=== PATIENT | male | born 1960 | race African-American/Black ===

== ENCOUNTER 2018-06-10 20:10 | Inpatient (IN) | payer SELFPAY ==
[~2018-06-10] VITALS: Ht 177.8 cm; Wt 60.4 kg
[2018-06-10] MEDS ORDERED: ONDANSETRON HCL 4MG/2ML INJ IV STA (23:44)
[2018-06-10] MEDS ORDERED: MORPHINE SULFATE 4 MG/ML CPJ (NOT FOR IM USE) IV STA (23:44)
[2018-06-10] MEDS ORDERED: SODIUM CHLORIDE 0.9% 1,000 ML IV ONE (23:44)
[2018-06-11 00:43] LABS: HEMATOCRIT. 48.2 % (42.0-52.0); HEMOGLOBIN. 16.3 g/dL (14.0-18.0); MEAN CORPUSCULAR HEMOGLOBIN 33.2 pg (28.0-32.0); MEAN PLATELET VOLUME 7.7 fl (7.4-10.4); PLATELET 213 x1000/uL (130-400); RED BLOOD CELL COUNT 4.92 mill/uL (4.7-6.1); RED CELL DISTRIBUTION WIDTH 12.8 % (11.6-14.6)
[2018-06-11 00:48] LABS: CHLORIDE 98 mEq/L (98-107)
[2018-06-11 01:12] LABS: ATYPICAL LYMPHOCYTES 5
[2018-06-11 01:13] LABS: PLATELET ESTIMATE NORMAL
[2018-06-11] MEDS ORDERED: SODIUM CHLORIDE 0.9% 1000ML BAG (SEPSIS BOLUS) IV ONE (01:45)
[2018-06-11] MEDS ORDERED: IOHEXOL-300 100 ML BOTTLE ONE (01:52)
[2018-06-11] MEDS ORDERED: LEVOFLOXACIN 750MG PREMIX 150 ML IV ONE (02:00)
[2018-06-11] MEDS ORDERED: VANCOMYCIN 1 G PREMIX 200 ML IV ONE (02:00)
[2018-06-11 02:35] LABS: CLARITY URINE CLEAR (CLEAR); COLOR URINE YELLOW (YELLOW); KETONES URINE TRACE (NEGATIVE); LEUKOCYTE ESTERASE URINE NEGATIVE (NEGATIVE); NITRITE URINE NEGATIVE (NEGATIVE); OCCULT BLOOD URINE NEGATIVE (NEGATIVE); PH URINE >=9.0 (4.5-8.0); PROTEIN URINE 2+ (NEGATIVE); SPECIFIC GRAVITY URINE 1.016 (1.005-1.030)
[2018-06-11] MEDS ORDERED: CLONIDINE 0.1MG TABLET PO NR (05:00)
[2018-06-11] MEDS ORDERED: MAGNESIUM/ALUMINUM HYDROXIDE/SIMETHICONE 30ML UDC PO PRN (05:15)
[2018-06-11] MEDS ORDERED: GUAIFENESIN 200MG/10ML SUGAR FREE UDC PO PRN (05:15)
[2018-06-11] MEDS ORDERED: LORAZEPAM 2MG/ML CPJ IV PRN (05:15)
[2018-06-11] MEDS ORDERED: NA PHOS,M-B/NA PHOS,DI-BA ENEMA 118ML PR PRN (05:15)
[2018-06-11] MEDS ORDERED: IPRATROPIUM/ALBUTEROL 0.5-3(2.5)MG/3ML NEB INH PRN (05:15)
[2018-06-11] MEDS ORDERED: DIPHENHYDRAMINE 50MG/ML VIAL IV PRN (05:15)
[2018-06-11] MEDS ORDERED: DOCUSATE SODIUM 100MG CAPSULE PO PRN (05:15)
[2018-06-11] MEDS ORDERED: ACETAMINOPHEN 325MG TABLET PO PRN (05:15)
[2018-06-11] MEDS ORDERED: CLONIDINE 0.3MG TABLET PO NR (05:30)
[2018-06-11] MEDS: AMLODIPINE 10MG TABLET PO SCH (05:44)
[2018-06-11] MEDS: MORPHINE SULFATE 4 MG/ML CPJ (NOT FOR IM USE) IV PRN (05:58)
[2018-06-11 06:26] LABS: CHLORIDE 101 mEq/L (98-107)
[2018-06-11 08:00] VITALS: BP 129/92
[2018-06-11] MEDS: LISINOPRIL 20MG TABLET PO SCH (09:00)
[2018-06-11] MEDS: ENOXAPARIN 40MG/0.4ML SYR SUBCUT SCH (09:00)
[2018-06-11] MEDS: METOPROLOL TARTRATE 25MG TABLET PO SCH ×2 (09:00→21:20)
[2018-06-11 10:17] VITALS: BP 129/92
[2018-06-11 12:00] VITALS: BP 126/87
[2018-06-11 16:00] VITALS: BP 137/90
[2018-06-11] MEDS ORDERED: BENZONATATE 100MG CAPSULE PO PRN (17:15)
[2018-06-11] MEDS ORDERED: NICOTINE 21MG PATCH TD NR (17:15)
[2018-06-11 20:00] VITALS: BP 140/92
[2018-06-11] MEDS: FLUTICASONE PROPIONATE 50MCG/SPRAY BOTTLE BOTHNSTRLS SCH (21:19)
[2018-06-11 22:49] LABS: CANNABINOID URINE SCREEN NEGATIVE (NEGATIVE); METHADONE URINE SCREEN NEGATIVE (NEGATIVE); OPIATES URINE SCREEN PRESUMTIVE POSITIVE (NEGATIVE); PHENCYCLIDINE URINE SCREEN NEGATIVE (NEGATIVE)
[2018-06-11 22:50] LABS: *AMPHETAMINES SCREEN URINE NEGATIVE (NEGATIVE); *BARBITURATES SCREEN URINE NEGATIVE (NEGATIVE); *BENZODIAZEPINES SCREEN URINE NEGATIVE (NEGATIVE); *COCAINE SCREEN URINE NEGATIVE (NEGATIVE)
[2018-06-12] VITALS (7 sets, daily range): BP systolic 104–186; BP diastolic 72–117
[2018-06-12] MEDS: LEVOFLOXACIN 500MG PREMIX 100 ML IV SCH (02:58)
[2018-06-12] MEDS: CLONIDINE 0.1MG TABLET PO PRN ×2 (02:59→09:12)
[2018-06-12] MEDS: MORPHINE SULFATE 4 MG/ML CPJ (NOT FOR IM USE) IV PRN ×2 (03:09→12:08)
[2018-06-12] MEDS: ONDANSETRON HCL 4MG/2ML INJ IV PRN ×2 (04:59→12:08)
[2018-06-12] MEDS: AMLODIPINE 10MG TABLET PO SCH (05:19)
[2018-06-12] MEDS: HYDROCODONE/ACETAMINOPHEN 5/325MG TABLET PO PRN ×2 (06:16→20:43)
[2018-06-12 07:00] LABS: HEMATOCRIT. 47.3 % (42.0-52.0); HEMOGLOBIN. 16.1 g/dL (14.0-18.0); MEAN CORPUSCULAR HEMOGLOBIN 33.4 pg (28.0-32.0); MEAN CORPUSCULAR VOLUME 98.3 fL (80.0-94.0); MEAN PLATELET VOLUME 7.8 fl (7.4-10.4); PLATELET 217 x1000/uL (130-400); RED BLOOD CELL COUNT 4.82 mill/uL (4.7-6.1); RED CELL DISTRIBUTION WIDTH 12.7 % (11.6-14.6)
[2018-06-12 07:15] LABS: CHLORIDE 103 mEq/L (98-107)
[2018-06-12 07:28] LABS: LDL CHOLESTEROL 106 mg/dL (5-100)
[2018-06-12 07:29] LABS: HDL CHOLESTEROL 72 mg/dL (40-59); T4 FREE 0.85 ng/dL (0.76-1.46)
[2018-06-12] MEDS: LISINOPRIL 20MG TABLET PO SCH (08:34)
[2018-06-12] MEDS: METOPROLOL TARTRATE 25MG TABLET PO SCH ×2 (08:34→20:43)
[2018-06-12] MEDS: NICOTINE 21MG PATCH TD SCH ×2 (08:34→08:41)
[2018-06-12] MEDS: ENOXAPARIN 40MG/0.4ML SYR SUBCUT SCH (08:35)
[2018-06-12] MEDS: FLUTICASONE PROPIONATE 50MCG/SPRAY BOTTLE BOTHNSTRLS SCH ×2 (08:36→20:43)
[2018-06-12] MEDS ORDERED: CLONIDINE 0.1MG TABLET PO SCH (12:00)
[2018-06-12] MEDS: HYDRALAZINE HCL 50MG TABLET PO SCH ×2 (14:00→20:43)
[2018-06-12 14:27] LABS: PLATELET ESTIMATE NORMAL
[2018-06-12] MEDS ORDERED: CLONIDINE 0.2MG TABLET PO PRN (17:15)
[2018-06-12] MEDS ORDERED: CLONIDINE 0.3MG TABLET PO PRN (17:15)
[2018-06-13] VITALS: BP 136/91
[2018-06-13 04:00] VITALS: BP 146/90
[2018-06-13] MEDS: HYDRALAZINE HCL 50MG TABLET PO SCH ×2 (05:34→15:29)
[2018-06-13] MEDS: LEVOFLOXACIN 500MG PREMIX 100 ML IV SCH (05:35)
[2018-06-13 08:00] VITALS: BP 147/104
[2018-06-13] MEDS: FLUTICASONE PROPIONATE 50MCG/SPRAY BOTTLE BOTHNSTRLS SCH (08:55)
[2018-06-13] MEDS: LISINOPRIL 20MG TABLET PO SCH (08:55)
[2018-06-13] MEDS: METOPROLOL TARTRATE 25MG TABLET PO SCH (08:56)
[2018-06-13] MEDS: AMLODIPINE 10MG TABLET PO SCH (08:56)
[2018-06-13] MEDS: NICOTINE 21MG PATCH TD SCH (08:57)
[2018-06-13] MEDS: ENOXAPARIN 40MG/0.4ML SYR SUBCUT SCH (08:57)
[2018-06-13] MEDS: MORPHINE SULFATE 4 MG/ML CPJ (NOT FOR IM USE) IV PRN (09:48)
[2018-06-13 12:00] VITALS: BP 140/85
[2018-06-13] MEDS: IPRATROPIUM/ALBUTEROL 0.5-3(2.5)MG/3ML NEB HHN SCH ×2 (13:12→17:28)
[2018-06-13] MEDS ORDERED: ACETYLCYSTEINE 100MG/ML 10% VIAL 4ML INH SCH (14:00)
[2018-06-13 16:00] VITALS: BP 145/93
[2018-06-13 18:39] VITALS: BP 145/93
[2018-06-13] MEDS ORDERED: GUAIFENESIN 600MG ER TABLET PO SCH (21:00)
[2018-06-13] MEDS ORDERED: LEVOFLOXACIN 750MG PREMIX 150 ML IV SCH (21:00)
[2018-06-14] MEDS ORDERED: LEVOFLOXACIN 250MG TABLET PO SCH (21:00)
== END 2018-06-13 19:20 | disposition home or self-care (01) | DRG 720 ==
LOC: ER 20:10 → 5WST 06-11 02:03 → EDBEDREQ 06-11 02:07 → ENRESERV 06-11 07:33
PROVIDERS: ADMIT Internal Medicine; ATTEND Internal Medicine
DX: A41.9 Sepsis, unspecified organism (principal); J96.00 Acute respiratory failure, unspecified whether with hypoxia or hypercapnia; J18.9 Pneumonia, unspecified organism; E11.9 Type 2 diabetes mellitus without complications; F17.210 Nicotine dependence, cigarettes, uncomplicated; H54.61 Unqualified visual loss, right eye, normal vision left eye; J43.9 Emphysema, unspecified; K29.70 Gastritis, unspecified, without bleeding; I10 Essential (primary) hypertension; M47.816 Spondylosis without myelopathy or radiculopathy, lumbar region; M48.061 Spinal stenosis, lumbar region without neurogenic claudication; Q63.1 Lobulated, fused and horseshoe kidney; Z82.3 Family history of stroke; Z83.3 Family history of diabetes mellitus; Z91.14 Patient's other noncompliance with medication regimen; Z88.0 Allergy status to penicillin; Z79.84 Long term (current) use of oral hypoglycemic drugs
CPT/HCPCS: 36415; 71045; 71250; 74177; 80048; 80061; 80305; 82962; 83036; 83605; 84439; 84443; 84484; 93005; 94640; 96365; 96367; 96375; 99291; J1650; J1956; J2270; J2405; J3370; J7030; J7040; J7050; J7608; J7620; Q9967

== ENCOUNTER 2018-08-14 23:23 | Inpatient (IN) | payer OTHER, MEDICAID ==
[~2018-08-14] VITALS: Ht 177.8 cm; Wt 66.7 kg
[2018-08-15 01:04] LABS: BASOPHILS % 0.4 % (0.0-2.0); EOSINOPHILS % 0.1 % (0.0-5.0); HEMATOCRIT. 38.4 % (42.0-52.0); HEMOGLOBIN. 12.9 g/dL (14.0-18.0); LYMPHOCYTES % 7.2 % (20.0-50.0); MEAN CORPUSCULAR HEMOGLOBIN 31.7 pg (28.0-32.0); MEAN CORPUSCULAR VOLUME 94.4 fL (80.0-94.0); MONOCYTES % 3.1 % (2.0-8.0); NEUTROPHILS % 89.2 % (40.0-76.0); PLATELET 519 x1000/uL (130-400); RED BLOOD CELL COUNT 4.07 mill/uL (4.7-6.1); RED CELL DISTRIBUTION WIDTH 13.3 % (11.6-14.6)
[2018-08-15 01:13] LABS: CHLORIDE 102 mEq/L (98-107)
[2018-08-15 01:16] LABS: INR 1.1; PARTIAL THROMBOPLASTIN TIME 34.3 sec (23.4-31.0); PROTHROMBIN TIME 11.3 sec (9.1-11.1)
[2018-08-15] MEDS ORDERED: ONDANSETRON HCL 4MG/2ML INJ IV ONE (01:45)
[2018-08-15] MEDS ORDERED: KETOROLAC 30MG/ML VIAL IV ONE (02:00)
[2018-08-15] MEDS ORDERED: ASPIRIN 325MG EC TABLET PO ONE (02:15)
[2018-08-15 02:31] LABS: CLARITY URINE CLOUDY (CLEAR); COLOR URINE YELLOW (YELLOW); KETONES URINE NEGATIVE (NEGATIVE); LEUKOCYTE ESTERASE URINE NEGATIVE (NEGATIVE); NITRITE URINE NEGATIVE (NEGATIVE); OCCULT BLOOD URINE NEGATIVE (NEGATIVE); PH URINE >=9.0 (4.5-8.0); PROTEIN URINE TRACE (NEGATIVE); UROBILINOGEN URINE 0.2 E.U./dL (0.2-1.0)
[2018-08-15] MEDS ORDERED: METOCLOPRAMIDE HCL 10MG/2ML VIAL IV ONE (03:15)
[2018-08-15] MEDS ORDERED: ONDANSETRON HCL 4MG/2ML INJ IV PRN (04:30)
[2018-08-15] MEDS ORDERED: CLONIDINE 0.1MG TABLET PO PRN (04:30)
[2018-08-15] MEDS ORDERED: MAGNESIUM/ALUMINUM HYDROXIDE/SIMETHICONE 30ML UDC PO PRN (04:30)
[2018-08-15] MEDS ORDERED: ACETAMINOPHEN 325MG TABLET PO PRN (04:30)
[2018-08-15] MEDS: SODIUM CHLORIDE 0.45% 1,000 ML IV SCH ×2 (05:30→21:40)
[2018-08-15] MEDS ORDERED: AMLO10TA4 PO (11:28)
[2018-08-15] MEDS ORDERED: RIVA20TA PO (11:28)
[2018-08-15] MEDS ORDERED: HYDR-4135 PO (11:28)
[2018-08-15] MEDS ORDERED: ALBU90AE IH (11:28)
[2018-08-15] MEDS ORDERED: ASPI-1159 PO (11:28)
[2018-08-15] MEDS: AMLODIPINE 10MG TABLET PO SCH (11:54)
[2018-08-15 12:00] VITALS: BP 137/86
[2018-08-15] MEDS ORDERED: PANTOPRAZOLE SODIUM 40 MG/VIAL IV SCH (14:00)
[2018-08-15 14:03] VITALS: BP 143/74
[2018-08-15] MEDS ORDERED: INFLUENZA VIRUS VACCINE(AFLURIA) 0.5ML SYR IM ONE (15:15)
[2018-08-15] MEDS ORDERED: PNEUMOCOCCAL 23-VAL P-SAC VAC 0.5 ML IM ONE (15:15)
[2018-08-15 16:00] VITALS: BP 130/87
[2018-08-15] MEDS ORDERED: RIVAROXABAN 10 MG TABLET PO SCH (17:00)
[2018-08-15] MEDS: METOCLOPRAMIDE HCL 10MG/2ML VIAL IV SCH ×2 (17:49→23:56)
[2018-08-15 20:53] VITALS: BP 126/87
[2018-08-15] MEDS: PANTOPRAZOLE SODIUM 40 MG/VIAL IV SCH (21:40)
[2018-08-15 23:55] VITALS: BP 165/99
[2018-08-16 04:00] VITALS: BP 167/114
[2018-08-16] MEDS ORDERED: HYDRALAZINE 20MG/ML VIAL IV PRN (04:45)
[2018-08-16] MEDS: METOCLOPRAMIDE HCL 10MG/2ML VIAL IV SCH ×4 (05:23→23:38)
[2018-08-16] MEDS: KETOROLAC 15MG/ML VIAL IV PRN ×2 (05:25→23:38)
[2018-08-16 07:24] LABS: BASOPHILS % 0.8 % (0.0-2.0); CHLORIDE 102 mEq/L (98-107); HEMATOCRIT. 41.5 % (42.0-52.0); HEMOGLOBIN. 13.9 g/dL (14.0-18.0); LYMPHOCYTES % 8.4 % (20.0-50.0); MEAN CORPUSCULAR HEMOGLOBIN 31.6 pg (28.0-32.0); MEAN CORPUSCULAR VOLUME 94.3 fL (80.0-94.0); MEAN PLATELET VOLUME 6.9 fl (7.4-10.4); MONOCYTES % 4.8 % (2.0-8.0); PLATELET 539 x1000/uL (130-400); RED CELL DISTRIBUTION WIDTH 13.2 % (11.6-14.6)
[2018-08-16 08:00] VITALS: BP 126/81
[2018-08-16] MEDS ORDERED: INFLUENZA VIRUS VACCINE(AFLURIA) 0.5ML SYR IM ONE (09:00)
[2018-08-16] MEDS ORDERED: PNEUMOCOCCAL 23-VAL P-SAC VAC 0.5 ML IM ONE (09:00)
[2018-08-16] MEDS: PANTOPRAZOLE SODIUM 40 MG/VIAL IV SCH ×2 (09:43→21:31)
[2018-08-16] MEDS: AMLODIPINE 10MG TABLET PO SCH (09:44)
[2018-08-16] MEDS: HYDROMORPHONE HCL/PF 2MG/ML CPJ IV PRN ×2 (09:45→17:53)
[2018-08-16 12:00] VITALS: BP 119/90
[2018-08-16] MEDS: SODIUM CHLORIDE 0.45% 1,000 ML IV SCH (14:45)
[2018-08-16 16:00] VITALS: BP 132/76
[2018-08-16] MEDS: RIVAROXABAN 20 MG TABLET PO SCH (17:52)
[2018-08-16 20:00] VITALS: BP 125/83
[2018-08-16 23:30] VITALS: BP 137/87
[2018-08-17] VITALS (7 sets, daily range): BP systolic 113–180; BP diastolic 76–99
[2018-08-17] MEDS: HYDROMORPHONE HCL/PF 2MG/ML CPJ IV PRN ×4 (02:28→22:21)
[2018-08-17] MEDS: METOCLOPRAMIDE HCL 10MG/2ML VIAL IV SCH ×3 (05:02→18:13)
[2018-08-17] MEDS: SODIUM CHLORIDE 0.45% 1,000 ML IV SCH ×2 (05:28→23:46)
[2018-08-17] MEDS: AMLODIPINE 10MG TABLET PO SCH (08:36)
[2018-08-17] MEDS: PANTOPRAZOLE SODIUM 40 MG/VIAL IV SCH ×2 (08:36→22:20)
[2018-08-17] MEDS ORDERED: SIMETHICONE 40 MG/0.6 ML 30ML ONE (12:48)
[2018-08-17] MEDS ORDERED: SODIUM CHLORIDE 0.9% 10ML VIAL ONE (13:51)
[2018-08-17] MEDS ORDERED: MIDAZOLAM HCL 5 MG/5 ML VIAL IV PRN (15:38)
[2018-08-17] MEDS ORDERED: FENTANYL CITRATE/PF 50MCG/ML 2ML VIAL IV PRN (15:39)
[2018-08-17] MEDS ORDERED: FENTANYL CITRATE/PF 50MCG/ML 2ML VIAL ONE (15:41)
[2018-08-17] MEDS ORDERED: MIDAZOLAM HCL 5 MG/5 ML VIAL ONE (15:41)
[2018-08-17] MEDS: RIVAROXABAN 20 MG TABLET PO SCH (18:13)
[2018-08-18 00:02] VITALS: BP 125/80
[2018-08-18] MEDS: METOCLOPRAMIDE HCL 10MG/2ML VIAL IV SCH ×3 (00:06→11:22)
[2018-08-18] MEDS: HYDROMORPHONE HCL/PF 2MG/ML CPJ IV PRN ×3 (03:45→12:19)
[2018-08-18 04:02] VITALS: BP 126/88
[2018-08-18 08:00] VITALS: BP 164/99
[2018-08-18] MEDS: PANTOPRAZOLE SODIUM 40 MG/VIAL IV SCH (08:06)
[2018-08-18] MEDS: AMLODIPINE 10MG TABLET PO SCH (08:07)
[2018-08-18 12:00] VITALS: BP 118/85
[2018-08-18 15:10] VITALS: BP 118/85
== END 2018-08-18 15:48 | disposition home or self-care (01) | DRG 241 ==
LOC: ER 23:23 → 5WST 08-15 02:04 → ENRESERV 08-15 10:06 → 6WST 08-17 16:52
PROVIDERS: ADMIT Hospitalist; ATTEND Hospitalist
PROC: 0DB68ZX Excision of Stomach, Via Natural or Artificial Opening Endoscopic, Diagnostic (ICD-10-PCS; principal; 2018-08-17 14:30)
DX: K29.60 Other gastritis without bleeding (principal); K31.84 Gastroparesis; E11.43 Type 2 diabetes mellitus with diabetic autonomic (poly)neuropathy; E44.1 Mild protein-calorie malnutrition; I10 Essential (primary) hypertension; D64.9 Anemia, unspecified; N40.0 Benign prostatic hyperplasia without lower urinary tract symptoms; J44.9 Chronic obstructive pulmonary disease, unspecified; K44.9 Diaphragmatic hernia without obstruction or gangrene; Z88.0 Allergy status to penicillin; Z86.711 Personal history of pulmonary embolism; Z79.82 Long term (current) use of aspirin; Z79.01 Long term (current) use of anticoagulants; Q63.1 Lobulated, fused and horseshoe kidney
CPT/HCPCS: 36415; 74176; 82962; 83036; 83605; 84484; 88305; 88312; 88313; 90686; 90732; 93005; 96365; 97161; 99285; A4216; C9113; J0360; J1170; J1885; J2250; J2405; J2765; J3010

== ENCOUNTER 2018-08-19 22:33 | Emergency (ER) | payer MEDICAID ==
[~2018-08-19] VITALS: Ht 177.8 cm; Wt 68.0 kg
[~2018-08-19 22:33] MED LIST: ALBU90AE IH; AMLO10TA4 PO; ASPI-1159 PO; HYDR-4135 PO; RIVA20TA PO
[2018-08-20 06:15] LABS: BASOPHILS % 0.4 % (0.0-2.0); EOSINOPHILS % 0.1 % (0.0-5.0); HEMOGLOBIN. 14.4 g/dL (14.0-18.0); LYMPHOCYTES % 19.4 % (20.0-50.0); MEAN CORPUSCULAR HEMOGLOBIN 31.2 pg (28.0-32.0); MEAN CORPUSCULAR VOLUME 92.9 fL (80.0-94.0); MEAN PLATELET VOLUME 6.7 fl (7.4-10.4); MONOCYTES % 8.1 % (2.0-8.0); PLATELET 459 x1000/uL (130-400); RED BLOOD CELL COUNT 4.63 mill/uL (4.7-6.1); RED CELL DISTRIBUTION WIDTH 13.4 % (11.6-14.6)
[2018-08-20 06:20] LABS: INR 1.2
[2018-08-20 06:22] LABS: CHLORIDE 100 mEq/L (98-107)
[2018-08-20] MEDS ORDERED: ONDANSETRON HCL 4MG/2ML INJ IV STA (06:35)
[2018-08-20] MEDS ORDERED: SODIUM CHLORIDE 0.9% 1,000 ML IV ONE (06:35)
[2018-08-20] MEDS ORDERED: MORPHINE SULFATE 10 MG/ML CPJ IV STA (06:35)
[2018-08-20] MEDS ORDERED: MAGNESIUM/ALUMINUM HYDROXIDE/SIMETHICONE 30ML UDC PO STA (06:35)
[2018-08-20] MEDS ORDERED: MORPHINE SULFATE 10 MG/ML CPJ IV ONE (07:15)
[2018-08-20 07:21] LABS: CLARITY URINE CLOUDY (CLEAR); COLOR URINE YELLOW (YELLOW); KETONES URINE NEGATIVE (NEGATIVE); LEUKOCYTE ESTERASE URINE NEGATIVE (NEGATIVE); NITRITE URINE NEGATIVE (NEGATIVE); OCCULT BLOOD URINE NEGATIVE (NEGATIVE); PROTEIN URINE NEGATIVE (NEGATIVE); SPECIFIC GRAVITY URINE 1.012 (1.005-1.030); UROBILINOGEN URINE 0.2 E.U./dL (0.2-1.0)
[2018-08-20] MEDS ORDERED: KETOROLAC 30MG/ML VIAL IV ONE (08:45)
[2018-08-20 10:10] VITALS: BP 127/91
== END 2018-08-20 10:16 | disposition home or self-care (01) ==
LOC: ER 22:33
DX: R10.13 Epigastric pain (principal); R03.0 Elevated blood-pressure reading, without diagnosis of hypertension; Z87.19 Personal history of other diseases of the digestive system
CPT/HCPCS: 36415; 80053; 81003; 83690; 85025; 85610; 96361; 96374; 96375; 99283; J1885; J2270; J2405

== ENCOUNTER 2018-08-21 00:41 | Emergency (ER) | payer MEDICAID ==
[~2018-08-21] VITALS: Ht 177.8 cm; Wt 68.0 kg
[2018-08-21] MEDS ORDERED: ONDANSETRON HCL 4MG/2ML INJ IV STA (04:39)
[2018-08-21] MEDS ORDERED: FAMOTIDINE 20MG/2ML VIAL IV STA (04:39)
[2018-08-21 05:20] LABS: CHLORIDE 99 mEq/L (98-107)
[2018-08-21 05:22] LABS: BASOPHILS % 0.5 % (0.0-2.0); EOSINOPHILS % 0.2 % (0.0-5.0); HEMATOCRIT. 42.7 % (42.0-52.0); HEMOGLOBIN. 14.3 g/dL (14.0-18.0); LYMPHOCYTES % 17.8 % (20.0-50.0); MEAN CORPUSCULAR HEMOGLOBIN 31.4 pg (28.0-32.0); MEAN CORPUSCULAR VOLUME 93.5 fL (80.0-94.0); MEAN PLATELET VOLUME 6.8 fl (7.4-10.4); MONOCYTES % 8.2 % (2.0-8.0); NEUTROPHILS % 73.3 % (40.0-76.0); PLATELET 417 x1000/uL (130-400); RED BLOOD CELL COUNT 4.57 mill/uL (4.7-6.1); RED CELL DISTRIBUTION WIDTH 13.5 % (11.6-14.6)
[2018-08-21 05:26] LABS: INR 1.1; PROTHROMBIN TIME 11.1 sec (9.1-11.1)
[2018-08-21] MEDS ORDERED: MORPHINE SULFATE 2 MG/ML CPJ (NOT FOR IM USE) IV ONE (06:30)
[2018-08-21] MEDS ORDERED: SODIUM CHLORIDE 0.9% 1,000 ML IV ONE (06:30)
[2018-08-21] MEDS ORDERED: MORPHINE SULFATE 10 MG/ML CPJ IV SCH (06:36)
[2018-08-21 08:52] LABS: CLARITY URINE CLEAR (CLEAR); COLOR URINE YELLOW (YELLOW); KETONES URINE NEGATIVE (NEGATIVE); LEUKOCYTE ESTERASE URINE NEGATIVE (NEGATIVE); NITRITE URINE NEGATIVE (NEGATIVE); OCCULT BLOOD URINE NEGATIVE (NEGATIVE); PROTEIN URINE NEGATIVE (NEGATIVE); SPECIFIC GRAVITY URINE 1.006 (1.005-1.030); UROBILINOGEN URINE 0.2 E.U./dL (0.2-1.0)
[2018-08-21] MEDS ORDERED: POTASSIUM CHLORIDE 20MEQ TABLET SR PO ONE (09:00)
[2018-08-21] MEDS ORDERED: VISCOUS LIDOCAINE 2% 15 ML UDC MM ONE (09:15)
[2018-08-21] MEDS ORDERED: MAGNESIUM/ALUMINUM HYDROXIDE/SIMETHICONE 30ML UDC PO ONE (09:15)
[2018-08-21 09:30] VITALS: BP 110/67
== END 2018-08-21 09:45 | disposition home or self-care (01) ==
LOC: ER 00:41
DX: K29.70 Gastritis, unspecified, without bleeding (principal); I10 Essential (primary) hypertension; F17.200 Nicotine dependence, unspecified, uncomplicated; Z98.890 Other specified postprocedural states; Z79.82 Long term (current) use of aspirin; Z79.899 Other long term (current) drug therapy; Z88.0 Allergy status to penicillin
CPT/HCPCS: 36415; 71045; 74176; 80053; 81003; 83690; 85025; 85610; 96361; 96374; 96375; 99284; J2270; J2405; J3490; J7030

== ENCOUNTER 2018-10-04 17:43 | Emergency (ER) | payer MEDICAID ==
[~2018-10-04] VITALS: Ht 177.8 cm; Wt 58.0 kg
[2018-10-04 22:58] LABS: CLARITY URINE CLEAR (CLEAR); COLOR URINE YELLOW (YELLOW); KETONES URINE TRACE (NEGATIVE); LEUKOCYTE ESTERASE URINE NEGATIVE (NEGATIVE); NITRITE URINE NEGATIVE (NEGATIVE); OCCULT BLOOD URINE NEGATIVE (NEGATIVE); PH URINE 7.5 (4.5-8.0); PROTEIN URINE 3+ (NEGATIVE); SPECIFIC GRAVITY URINE 1.021 (1.005-1.030); UROBILINOGEN URINE 0.2 E.U./dL (0.2-1.0)
[2018-10-04] MEDS ORDERED: SODIUM CHLORIDE 0.9% 1,000 ML IV ONE (22:58)
[2018-10-04] MEDS ORDERED: MAGNESIUM/ALUMINUM HYDROXIDE/SIMETHICONE 30ML UDC PO STA (22:58)
[2018-10-04] MEDS ORDERED: ONDANSETRON HCL 4MG/2ML INJ IV STA (22:58)
[2018-10-04] MEDS ORDERED: MORPHINE SULFATE 10 MG/ML CPJ IV ONE (23:00)
[2018-10-04 23:44] LABS: BASOPHILS % 0.3 % (0.0-2.0); HEMATOCRIT. 44.6 % (42.0-52.0); LYMPHOCYTES % 13.7 % (20.0-50.0); MEAN CORPUSCULAR HEMOGLOBIN 31.7 pg (28.0-32.0); MEAN CORPUSCULAR VOLUME 94.5 fL (80.0-94.0); MEAN PLATELET VOLUME 7.2 fl (7.4-10.4); MONOCYTES % 4.5 % (2.0-8.0); NEUTROPHILS % 81.5 % (40.0-76.0); PLATELET 220 x1000/uL (130-400); RED BLOOD CELL COUNT 4.72 mill/uL (4.7-6.1); RED CELL DISTRIBUTION WIDTH 15.9 % (11.6-14.6)
[2018-10-04 23:48] LABS: CHLORIDE 104 mEq/L (98-107)
[2018-10-04 23:49] LABS: INR 1.2; PROTHROMBIN TIME 11.6 sec (9.1-11.1)
[2018-10-05 04:16] VITALS: BP 130/80
== END 2018-10-05 04:21 | disposition home or self-care (01) ==
LOC: ER 17:43
DX: K29.70 Gastritis, unspecified, without bleeding (principal); E11.9 Type 2 diabetes mellitus without complications; I10 Essential (primary) hypertension; F17.200 Nicotine dependence, unspecified, uncomplicated; Z79.82 Long term (current) use of aspirin; Z79.899 Other long term (current) drug therapy; Z88.0 Allergy status to penicillin
CPT/HCPCS: 36415; 80053; 81003; 83690; 85025; 85610; 96361; 96374; 96375; 99283; J2270; J2405; J7030; J7040; Z7610

== ENCOUNTER 2018-11-24 20:28 | Emergency (ER) | payer MEDICAID ==
[~2018-11-24] VITALS: Ht 182.9 cm; Wt 76.6 kg
[2018-11-24] MEDS ORDERED: ONDANSETRON HCL 4MG/2ML INJ IV STA (23:33)
[2018-11-24] MEDS ORDERED: SODIUM CHLORIDE 0.9% 1,000 ML IV ONE (23:33)
[2018-11-24] MEDS ORDERED: KETOROLAC 30MG/ML VIAL IV STA (23:33)
[2018-11-24 23:54] LABS: BASOPHILS % 0.1 % (0.0-2.0); HEMATOCRIT. 50.6 % (42.0-52.0); HEMOGLOBIN. 17.2 g/dL (14.0-18.0); LYMPHOCYTES % 9.7 % (20.0-50.0); MEAN CORPUSCULAR HEMOGLOBIN 32.6 pg (28.0-32.0); MEAN CORPUSCULAR VOLUME 96.1 fL (80.0-94.0); MEAN PLATELET VOLUME 7.4 fl (7.4-10.4); MONOCYTES % 2.6 % (2.0-8.0); NEUTROPHILS % 87.6 % (40.0-76.0); PLATELET 186 x1000/uL (130-400); RED BLOOD CELL COUNT 5.27 mill/uL (4.7-6.1)
[2018-11-24 23:59] LABS: CHLORIDE 103 mEq/L (98-107)
[2018-11-25] LABS: INR 1.1; PROTHROMBIN TIME 10.7 sec (9.1-11.1)
[2018-11-25 01:45] LABS: CLARITY URINE CLEAR (CLEAR); COLOR URINE YELLOW (YELLOW); KETONES URINE 1+ (NEGATIVE); LEUKOCYTE ESTERASE URINE NEGATIVE (NEGATIVE); NITRITE URINE NEGATIVE (NEGATIVE); OCCULT BLOOD URINE 1+ (NEGATIVE); PROTEIN URINE 3+ (NEGATIVE); SPECIFIC GRAVITY URINE 1.014 (1.005-1.030); UROBILINOGEN URINE 0.2 E.U./dL (0.2-1.0)
[2018-11-25 01:51] LABS: *AMPHETAMINES SCREEN URINE NEGATIVE (NEGATIVE); *BARBITURATES SCREEN URINE NEGATIVE (NEGATIVE); *BENZODIAZEPINES SCREEN URINE NEGATIVE (NEGATIVE); *COCAINE SCREEN URINE NEGATIVE (NEGATIVE); CANNABINOID URINE SCREEN NEGATIVE (NEGATIVE); METHADONE URINE SCREEN NEGATIVE (NEGATIVE); OPIATES URINE SCREEN NEGATIVE (NEGATIVE); PHENCYCLIDINE URINE SCREEN NEGATIVE (NEGATIVE)
[2018-11-25] MEDS ORDERED: CLON0.3T4 MT (04:11)
[2018-11-25] MEDS ORDERED: LOSA100T3 MT (04:11)
[2018-11-25] MEDS ORDERED: NIFE60TA64 MT (04:12)
[2018-11-25 11:18] VITALS: BP 110/65
== END 2018-11-25 13:32 | disposition home or self-care (01) ==
LOC: ER 21:03
DX: R10.33 Periumbilical pain (principal); R11.2 Nausea with vomiting, unspecified; Z59.0 Homelessness; I10 Essential (primary) hypertension; Z88.0 Allergy status to penicillin; Z79.82 Long term (current) use of aspirin; Z79.899 Other long term (current) drug therapy
CPT/HCPCS: 36415; 71045; 74176; 80053; 80305; 81003; 83690; 85025; 85610; 93005; 93970; 96361; 96374; 96375; 99284; J1885; J2405; J7030